=== PATIENT | female | born 1980 | race Caucasian/White ===

== ENCOUNTER 2022-08-11 16:30 | Emergency (ER) | payer OTHER, SELFPAY ==
--- NOTE | ~2022-08-11 | XR_ITS ---
EXAMINATION: XR chest 2V Exam Date/Time: 08/11/2022 18:30 CDT HISTORY: evaluate for possible rt side FB AFTER TATTOO Comparison: 08/23/2014. RESULT: Lines, tubes, and devices: None. Lungs and pleura: Clear. Cardiomediastinal silhouette: Stable. Other: No acute osseous or upper abdominal finding. IMPRESSION: No acute cardiopulmonary process. No radiopaque foreign body. Reviewed, dictated and finalized at location K.
[2022-08-11 16:35] VITALS: BP 131/81; PULSE 93; RESP 18; TEMP 36.1; O2SAT 100
--- NOTE | 2022-08-11 18:43 | PC.NURSE ---
EDP at bedside to assess pt.
--- NOTE | 2022-08-11 18:50 | ED.WOUNDLAC ---
HPI - Wound/Laceration General Chief Complaint: Wound/Laceration Stated Complaint: WOUND TO TATOO Time Seen by Provider: 08/11/22 18:22 History of Present Illness HPI narrative: 41-year-old female presents the emergency room for evaluation of right thoracic back pain. Patient states 8 months ago she had a tattoo placed to her thoracic back and was experiencing some pain several months after the tattoo was placed. Patient states that she went to an outside emergency room and was given antibiotic ointment to treat for possible infection. Patient states that she did not experience any resolution of her symptoms. Patient then states that she went back to the artist scientific, where he made an incision and began digging around in her back searching for a possible foreign body or tip of the tattoo gun. Patient states the artist scientific did not find foreign body. Patient describes the pain as a burning sensation to the small area in question. Patient has been using Tylenol and ibuprofen with no resolution of symptoms Related Data Allergies Allergy/AdvReac Type Severity Reaction Status Date / Time acetaminophen Allergy Mild ITCHING Verified 08/11/22 18:43 codeine Allergy Mild ITCHING Verified 08/11/22 18:43 Review of Systems Review of Systems: CONSTITUTIONAL: Denies fever, chills, or sweats. EYES: Denies visual changes, redness, or discharge. ENT: Denies rhinorrhea, congestion, sore throat, or otalgia. CARDIOVASCULAR: Denies chest pain, palpitations, or edema. RESPIRATORY: Denies cough or dyspnea. GASTROINTESTINAL: Denies abdominal pain, nausea, vomiting, or diarrhea. GENITOURINARY: Denies dysuria or hematuria. SKIN: Denies rash or itching. MUSCULOSKELETAL: Denies back pain, joint pain, or myalgia. NEUROLOGIC: Denies headache, numbness, dizziness, or weakness. PSYCHIATRIC: Denies anxiety or depression. Exam Narrative: GENERAL: Well-appearing, well-nourished, no physical limitations, and in no acute distress. HEAD: Normocephalic, atraumatic. EYES: Conjunctivae normal, PERRLA and EOMI. CHEST: Clear to auscultation. No respiratory distress. No wheezes rales or rhonchi. No tenderness. HEART: Regular rate and rhythm. No murmur heard. Normal peripheral pulses. BACK: No cervical/thoracic/lumbar tenderness, step-offs, bony abnormality; FROM EXTREMITIES: Normal range of motion. No edema. No clubbing or cyanosis SKIN: Small 1.5 cm scar to the mid right thoracic area, with no erythema no soft tissue swelling no purulent drainage. No palpable subcutaneous mass. NEURO: No focal deficits. Alert and oriented x3. MAEW. CN's II-XI intact bilaterally, normal gait PSYCH: Cooperative. Normal mood and affect. Course Vital Signs Vital signs: Vital Signs Temperature 36.1 C L 08/11/22 16:35 Pulse Rate 93 08/11/22 16:35 Respiratory Rate 18 08/11/22 16:35 Blood Pressure 131/81 08/11/22 16:35 Pulse Oximetry 100 08/11/22 16:35 Oxygen Delivery Room Air 08/11/22 16:35 Temperature 36.1 C L 08/11/22 16:35 Pulse Rate 93 08/11/22 16:35 Respiratory Rate 18 08/11/22 16:35 Blood Pressure 131/81 08/11/22 16:35 Pulse Oximetry 100 08/11/22 16:35 Oxygen Delivery Room Air 08/11/22 16:35 MDM - Wound/Laceration MDM Narrative Medical decision making narrative: Imaging was obtained to evaluate for a soft tissue mass. Chest x-ray and lateral views demonstrated no foreign body. Patient was describing the pain as a burning sensation, which could be nerve irritation in nature. Will trial the patient on gabapentin to see if this alleviates her symptoms. Also have patient follow-up with plastics for further evaluation. Discharge Plan Discharge Clinical Impression: Paresthesia Patient Disposition: Home, Self-Care Condition: Stable Instructions: Antibiotic Form Prescriptions: New gabapentin 300 mg capsule 300 mg PO BID Qty: 20 0RF Follow-up/Referrals: Fredy Jack MD [Physician] - UNKNOWN,DOCTOR [Pr
== END 2022-08-11 19:35 | disposition home or self-care (01) ==
PROVIDERS: Emergency Provider Nurse Practitioner Family
DX: R20.2 Paresthesia of skin (principal)
CPT/HCPCS: 71046; 99283

== ENCOUNTER 2022-12-04 15:29 | Outpatient (CLI) | payer OTHER, SELFPAY ==
[2022-12-04 15:49] LABS: Hematocrit 37.7 % (37.0-47.0); Hemoglobin 12.9 g/dL (12.0-15.0); Mean Corpuscular HGB Conc 34.2 g/dl (32-36); Mean Corpuscular Hemoglobin 33.7 pg (26-34); Mean Corpuscular Volume 98.4 fl (80-100); Mean Platelet Volume 9.2 fl (7.4-10.4); Platelet Count Result 277 k/mm3 (150-375); Red Blood Count 3.83 M/mm3 (4.2-5.4); Red Cell Distribution Width 15.5 % (11.5-14.5); White Blood Count 8.9 K/mm3 (4.5-10.0)
[2022-12-04 16:00] LABS: Alanine Aminotransferase 18 U/L (6-35); Albumin Level 4.2 g/dL (3.5-5.1); Alkaline Phosphatase 72 U/L (38-126); Anion Gap 5 mmol/L (8-16); Aspartate Amino Transferase 21 U/L (14-36); Bilirubin,Total 0.5 mg/dL (0.2-1.3); Blood Urea Nitrogen 10 mg/dL (7-17); Carbon Dioxide 28 mmol/L (22-30); Chloride 106 mmol/L (98-107); Cholesterol 207 mg/dL (0-200); Estimated Glomerular Filt Rate > 60; Glucose 90 mg/dL (65-110); HDL Direct 51 mg/dL; Potassium 3.9 mmol/L (3.4-5.0); Sodium 139 mmol/L (137-145); Triglycerides 63 mg/dL (<150)
[2022-12-04 16:09] LABS: Hemoglobin A1C 5.2 % (<5.7)
[2022-12-04 16:11] LABS: LDL Cholesterol Direct 115 mg/dL
== END 2022-12-04 15:30 | disposition home or self-care (01) ==
LOC: ANHLAB 15:30
PROVIDERS: PCP Internal Medicine; Visit Provider Internal Medicine
DX: Z00.00 Encounter for general adult medical examination without abnormal findings (principal); F41.9 Anxiety disorder, unspecified
CPT/HCPCS: 36415; 80053; 80061; 83036; 84443; 85027

== ENCOUNTER 2023-05-26 00:16 | Day surgery (SDC) | payer OTHER, SELFPAY ==
[2023-05-15 14:16] VITALS: BMI 29.3
[2023-05-26 08:41] VITALS: BP 120/79; PULSE 61; RESP 24; TEMP 36.1; O2SAT 100
[2023-05-26] MEDS: LACTATED RINGERS 1,000 ML 150 ML IV CONT (09:00)
--- NOTE | 2023-05-26 09:05 | WPDANESEPPF ---
Anes - Initial Pre Proc Eval Procedure: Operation Date: 05/26/23 09:30 Proposed Procedures p Esophagogastroduodenoscopy & Colonoscopy - Yoseph Perez MD Date/Time: 05/26/23 09:05 Surgeon: Yoseph Perez MD Pre Op Diagnosis: GERD,dysphagia,melena,Right lower quadrant pain Patient Data Age: 42 Gender: F Height: 1.57 m Weight: 78.7 kg Last Vital Signs Temp 97.0 F L 05/26/23 08:41 Pulse 61 05/26/23 08:41 Resp 24 H 05/26/23 08:41 BP 120/79 05/26/23 08:41 Pulse Ox 100 05/26/23 08:41 O2 Del Method Room Air 05/26/23 08:41 Allergies Allergy/AdvReac Type Severity Reaction Status Date / Time acetaminophen Allergy Mild ITCHING Verified 05/26/23 09:02 codeine Allergy Mild ITCHING Verified 05/26/23 09:02 Home Medications Medication Instructions Recorded Confirmed Type Proctofoam HC 1 %-1 % 1 applic RECTAL QID PRN 03/24/23 05/26/23 Rx (hydrocortisone-pramoxine) hemorrhoids #10 grams quetiapine 100 mg tablet 100 mg PO QHS #90 tabs 04/16/23 05/26/23 Rx hyoscyamine sulfate 0.125 mg 0.125 mg PO .every 6 hours 05/04/23 05/26/23 Rx tablet (Levsin) abdominal pain #120 tabs pantoprazole 40 mg tablet,delayed 40 mg PO QAM #30 tabs 05/06/23 05/26/23 Rx release prazosin 1 mg capsule (Minipress) 1 mg PO QHS 05/15/23 05/26/23 History albuterol sulfate 90 mcg/actuation 1 inh inhalation Q8H PRN shortness 05/22/23 05/26/23 Rx aerosol inhaler (Ventolin HFA) of breath or wheezing #6.7 grams lorazepam 1 mg tablet 1 mg PO TID PRN anxiety #60 tabs 05/22/23 05/26/23 Rx Patient hx anesthesia problems: none Family hx anesthesia problems: none Results Review: All pre-operative results and documents have been reviewed as part of the pre-operative evaluation. PMFSH Past Medical History Medical History Anxiety Asthma Bipolar 1 disorder Chronic bilateral lower abdominal pain Closed fracture of 4th metacarpal Colitis Decreased appetite Dilation of esophagus Dysphagia Early satiety GERD (gastroesophageal reflux disease) Hematochezia Hiatal hernia Low back pain Rectal pain Right fibular fracture Thyroid disease Tobacco use Surgical History Surgical History H/O: hysterectomy Family History Family History Mother Diabetes mellitus Heart disease Father Heart disease Social History Social History Smoking packs per day: 1 Smoking cigarettes per day: 20.0 Years smoked: 9 Smoking pack-years: 9.00 Smoking status: Current some day smoker Tobacco type: cigarettes Alcohol intake: never Substance use: current Substance use type: marijuana Last use: 05/09/23 Lack of Transportation: No Lack of Food: Never True Current Housing: I Have Housing Concerned About Future Housing: No Difficulty Paying Gas/Electric Bills: No Difficulty Paying for Meds: No Currently Unemployed: No Education: High School Diploma/GED Difficulty w/ Childcare or Family Care: No Living arrangements: with family Gender identity (if verbalized by the patient): Female Sexual Orientation (if Verbalized by the Patient): Bisexual Spiritual care concerns: No Anes - Eval Final PreProcedure Day of Procedure 05/26/23 09:05 Patient weight: obese Heart: regular rate and rhythm Lungs: clear to auscultation Airway: Mallampati scale class II Neurological: alert and oriented Last oral intake: >/= 8 hours ASA classification: III Emergent: no Anesthetic plan: proceed Anesthesia type and monitoring: general GIVS and standard monitoring Results Review: All pre-operative results and documents have been reviewed as part of the pre-operative evaluation. Informed Consent: The patient's anesthetic plan and its attendant risks and benefits were discussed with the patient/family/POA. Questions were
--- NOTE | 2023-05-26 09:08 | WPDHPUPDATE1 ---
History and Physical Update Update Date/Time: 05/26/23 09:08 History and Physical has been reviewed, including an updated exam of the patient. There are NO changes in the patient's condition. Risks, benefits, and alternatives have been discussed and questions answered. Patient agrees to proceed with procedure.
--- NOTE | 2023-05-26 09:30 | SUR.OPER ---
EGD: Start 09:18, End 09:22 Colon: Start 09:27 End 09:38
[2023-05-26 09:40] VITALS: BP 113/70; PULSE 66; RESP 24; O2SAT 100
[2023-05-26 09:50] VITALS: BP 112/85; PULSE 58; RESP 24; O2SAT 98
[2023-05-26 10:00] VITALS: BP 132/85; PULSE 54; RESP 24; O2SAT 100
== END 2023-05-26 10:13 | disposition home or self-care (01) ==
PROVIDERS: PCP Family Medicine; Visit Provider Internal Medicine Gastroenterology
PROC: 0DJ08ZZ Inspection of Upper Intestinal Tract, Via Natural or Artificial Opening Endoscopic (ICD-10-PCS; CPT 43235; principal; 2023-05-26 09:30)
DX: K21.00 Gastro-esophageal reflux disease with esophagitis, without bleeding (principal); K44.9 Diaphragmatic hernia without obstruction or gangrene; K29.70 Gastritis, unspecified, without bleeding; D12.3 Benign neoplasm of transverse colon; Z87.19 Personal history of other diseases of the digestive system; Z79.51 Long term (current) use of inhaled steroids; F31.9 Bipolar disorder, unspecified; F17.210 Nicotine dependence, cigarettes, uncomplicated; E66.9 Obesity, unspecified; Z68.31 Body mass index [BMI] 31.0-31.9, adult
CPT/HCPCS: 45385; 43239; 88305; J2704; J7120

== ENCOUNTER 2023-07-04 12:20 | Outpatient (CLI) | payer OTHER, SELFPAY ==
--- NOTE | ~2023-07-04 | MR_ITS ---
MRI of the lumbar spine Clinical History: Back pain Technique: Axial T2-weighted images, and sagittal T1-weighted, T2-weighted, and T2 fat-sat images wer e acquired. Findings: There is no fracture or subluxation of the lumbar spine. Vertebral bodies maintain normal h eight and alignment. There are reactive marrow signal changes about the L3-L4 disc space. No suspicio us bone marrow signal abnormality seen. Small intraosseous hemangioma noted at T11. At L1-L2 and L2-L3, there is no disc bulge or herniation. There is mild facet joint arthropathy at th ana luisa levels. No spinal canal stenosis or neural foraminal narrowing at these levels. At L3-L4, there is broad-based posterior disc protrusion. There is mild to moderate facet arthropathy . No central canal stenosis or neural foraminal narrowing. At L4-L5, there is mild diffuse disc bulge with tiny annular fissure. No central canal stenosis or ne ural foraminal narrowing. At L5-S1, there is no disc bulge or herniation. No spinal canal stenosis or neural foraminal narrowin g. Paravertebral soft tissues are unremarkable. Impression: Mild degenerative spondylosis, especially at L3-L4 and L4-L5, as detailed above. Reviewed, dictated and finalized at location . Impression: Mild degenerative spondylosis, especially at L3-L4 and L4-L5, as detailed above .
== END 2023-07-04 12:21 | disposition home or self-care (01) ==
PROVIDERS: PCP Family Medicine; Visit Provider Family Medicine
DX: R32 Unspecified urinary incontinence (principal); N32.81 Overactive bladder; M47.896 Other spondylosis, lumbar region
CPT/HCPCS: 72148

== ENCOUNTER 2023-09-10 04:45 | Emergency (ER) | payer OTHER, SELFPAY ==
[2023-09-10 04:46] VITALS: BP 133/99; PULSE 92; RESP 20; TEMP 36.2; O2SAT 98
--- NOTE | 2023-09-10 05:48 | ED.ANXIETY ---
HPI - Anxiety General Chief Complaint: Anxiety Stated Complaint: anxiety Time Seen by Provider: 09/10/23 05:01 History of Present Illness HPI narrative: Patient is a 42-year-old female with a history of PTSD, bipolar disorder, anxiety presenting with anxiety. Patient states that she has been out of her medications for the last month and her PCP is unable to get her in until December. States that her anxiety has been increasingly severe especially since one of her friends killed himself. States that she just feels overwhelmed with everything going on in her life. She denies suicidal or homicidal ideation. No hallucinations or paranoia. Denies further complaints. Related Data Allergies Allergy/AdvReac Type Severity Reaction Status Date / Time acetaminophen Allergy Mild ITCHING Verified 06/02/23 13:43 codeine Allergy Mild ITCHING Verified 06/02/23 13:43 Review of Systems Review of Systems: All systems reviewed & are unremarkable except as noted in HPI and below PMFSH Past Medical History Medical History Anxiety Asthma Bipolar 1 disorder Chronic bilateral lower abdominal pain Closed fracture of 4th metacarpal Colitis Decreased appetite Dilation of esophagus Dysphagia Early satiety GERD (gastroesophageal reflux disease) Hematochezia Hiatal hernia Low back pain Rectal pain Right fibular fracture Thyroid disease Tobacco use Surgical History Surgical History H/O: hysterectomy Family History Family History Mother Diabetes mellitus Heart disease Father Heart disease Social History Social History Smoking packs per day: 1 Smoking cigarettes per day: 20.0 Years smoked: 9 Smoking pack-years: 9.00 Smoking status: Current some day smoker Tobacco type: cigarettes Alcohol intake: never Substance use: current Substance use type: marijuana Last use: 05/09/23 Lack of Transportation: No Lack of Food: Never True Current Housing: I Have Housing Concerned About Future Housing: No Difficulty Paying Gas/Electric Bills: No Difficulty Paying for Meds: No Currently Unemployed: No Education: High School Diploma/GED Difficulty w/ Childcare or Family Care: No Living arrangements: with family Gender identity (if verbalized by the patient): Female Sexual Orientation (if Verbalized by the Patient): Bisexual Spiritual care concerns: No Exam Narrative: GENERAL: Anxious, intermittently tearful, pleasant and cooperative HEAD: Normocephalic, atraumatic. EYES: PERRLA and EOMI. ENT: Mucous membranes moist. NECK: Supple. CHEST: Clear to auscultation. No respiratory distress. HEART: Regular rate and rhythm ABDOMEN: Soft, nontender, nondistended EXTREMITIES: Normal range of motion. SKIN: Warm, dry, no rash. NEURO: No focal deficits. Alert and oriented x3. PSYCH: Tearful, anxious, cooperative, denies SI or HI Course Vital Signs Vital signs: Vital Signs Temperature 97.2 F L 09/10/23 04:46 Pulse Rate 92 09/10/23 04:46 Respiratory Rate 20 09/10/23 04:46 Blood Pressure 133/99 H 09/10/23 04:46 Pulse Oximetry 98 09/10/23 04:46 Oxygen Delivery Room Air 09/10/23 04:46 Temperature 97.2 F L 09/10/23 04:46 Pulse Rate 92 09/10/23 04:46 Respiratory Rate 20 09/10/23 04:46 Blood Pressure 133/99 H 09/10/23 04:46 Pulse Oximetry 98 09/10/23 04:46 Oxygen Delivery Room Air 09/10/23 04:46 MDM - Anxiety MDM Narrative Medical decision making narrative: 42-year-old female presenting with anxiety. Vitals are stable. Exam remarkable for the above. Patient states that she has been out of her medications which includes as needed Ativan. She also takes prazosin for PTSD. States that she has been trying to get in with her PCP but he is unable to get her in for several months.
[2023-09-10] MEDS: LORazepam (*CRX) 1 MG TABLET PO (05:55)
== END 2023-09-10 06:12 | disposition home or self-care (01) ==
PROVIDERS: Emergency Provider Emergency Medicine; PCP Family Medicine
DX: F41.9 Anxiety disorder, unspecified (principal); F43.10 Post-traumatic stress disorder, unspecified; T42.4X6A Underdosing of benzodiazepines, initial encounter; T44.6X6A Underdosing of alpha-adrenoreceptor antagonists, initial encounter; F31.9 Bipolar disorder, unspecified; J45.909 Unspecified asthma, uncomplicated; E07.9 Disorder of thyroid, unspecified; K21.9 Gastro-esophageal reflux disease without esophagitis; K44.9 Diaphragmatic hernia without obstruction or gangrene; R68.81 Early satiety
CPT/HCPCS: 99283; A9270

== ENCOUNTER 2024-05-13 15:04 | Emergency (ER) | payer OTHER, SELFPAY ==
[2024-05-13 15:10] VITALS: BP 132/81; PULSE 93; RESP 16; TEMP 36.6; O2SAT 100
--- NOTE | 2024-05-13 15:37 | ED.SKABFB ---
HPI - Skin/Abscess/Foreign Bdy General Chief complaint: Skin/Abscess/Foreign Body Stated complaint: inflammation on abd Time Seen by Provider: 05/13/24 15:37 Source: patient Mode of arrival: ambulatory Limitations: no limitations History of Present Illness HPI narrative: Brett is a 43-year-old patient presenting to the clinic today with complaints of inflammation to the skin folds of their abdomen. States that the rash is itching and burning and at times using. Feels as though they has some whelps areas in the skin fold. Patient has had tried nystatin cream, ketoconazole cream, clotrimazole cream, and clobetasol cream without relief Related Data Allergies Allergy/AdvReac Type Severity Reaction Status Date / Time acetaminophen Allergy Mild ITCHING Verified 04/11/24 13:15 codeine Allergy Mild ITCHING Verified 04/11/24 13:15 lithium AdvReac Intermediate mood Uncoded 04/11/24 13:37 Review of Systems Review of Systems: Pertinent positives per HPI. Patient denies any fever, chills, rash, headache, visual changes, dizziness, cough, runny nose, sore throat, shortness of breath, chest pain, palpitations, nausea, vomiting, diarrhea, constipation, abdominal pain, or any urinary issues. [facility] Past Medical History Medical History Anxiety Asthma Bipolar 1 disorder Chronic bilateral lower abdominal pain Closed fracture of 4th metacarpal Colitis Decreased appetite Dilation of esophagus Dysphagia Early satiety GERD (gastroesophageal reflux disease) Hematochezia Hiatal hernia Low back pain Rectal pain Right fibular fracture Thyroid disease Tobacco use Surgical History Surgical History H/O: hysterectomy Family History Family History Mother Diabetes mellitus Heart disease Father Heart disease Social History Social History Smoking packs per day: 1 Smoking cigarettes per day: 20.0 Years smoked: 9 Smoking pack-years: 9.00 Smoking status: Current some day smoker Tobacco type: cigarettes Alcohol intake: never Substance use: current Substance use type: marijuana Last use: 05/09/23 Lack of Transportation: No Lack of Food: Never True Current Housing: I Have Housing Concerned About Future Housing: No Difficulty Paying Gas/Electric Bills: No Difficulty Paying for Meds: No Currently Unemployed: No Education: High School Diploma/GED Difficulty w/ Childcare or Family Care: No Living arrangements: with family Gender identity (if verbalized by the patient): Female Sexual Orientation (if Verbalized by the Patient): Bisexual Spiritual care concerns: No Comments At the time of my signature, I reviewed and agree with the nursing past medical, surgical, social, and family history. There is no relevant family history pertinent to the patient complaint. Exam Narrative: General: Well-developed, well nourished, in no apparent distress Head: Normocephalic, atraumatic. Cardio: Regular rate and rhythm, s1 and s2 normal, no murmur appreciated. Resp: Clear to auscultation bilaterally, no rhonchi, rales, wheezing or rubs. Integumentary: [place], warm, and dry, redness, itching, mild erythema and the abdomen skin fold with satellite lesions. Course Course Emergency Course: Portions of this record may have been created with voice recognition software. Vital Signs Vital signs: Vital Signs Temperature 36.6 C 05/13/24 15:10 Pulse Rate 93 05/13/24 15:10 Respiratory Rate 16 05/13/24 15:10 Blood Pressure 132/81 05/13/24 15:10 Pulse Oximetry 100 05/13/24 15:10 Oxygen Delivery Room Air 05/13/24 15:10 Temperature 36.6 C 05/13/24 15:10 Pulse Rate 93 05/13/24 15:10 Respiratory Rate 16 05/13/24 15:10 Blood Pressure 132/81 05/13/24 15:10 Pulse Oximetry 100 05/13/24 15:10
== END 2024-05-13 15:59 | disposition home or self-care (01) ==
LOC: ANHED 15:49
PROVIDERS: Emergency Provider Nurse Practitioner Family; PCP Family Medicine
DX: L30.4 Erythema intertrigo (principal); J45.909 Unspecified asthma, uncomplicated; E07.9 Disorder of thyroid, unspecified; K21.9 Gastro-esophageal reflux disease without esophagitis; K44.9 Diaphragmatic hernia without obstruction or gangrene; R68.81 Early satiety; F41.9 Anxiety disorder, unspecified; F31.9 Bipolar disorder, unspecified; F17.210 Nicotine dependence, cigarettes, uncomplicated; Z90.710 Acquired absence of both cervix and uterus; Z79.899 Other long term (current) drug therapy
CPT/HCPCS: 99283

== ENCOUNTER 2024-07-28 13:26 | Outpatient (CLI) | payer OTHER, SELFPAY ==
[2024-07-28 18:40] LABS: Hematocrit 42.1 % (37.0-47.0); Hemoglobin 14.3 g/dL (12.0-15.0); Mean Corpuscular Hemoglobin 34.3 pg (26-34); Mean Platelet Volume 11.2 fl (7.4-10.4); Platelet Count Result 216 k/mm3 (150-375); Red Blood Count 4.17 M/mm3 (4.2-5.4); Red Cell Distribution Width 14.1 % (11.5-14.5); White Blood Count 7.3 K/mm3 (4.5-10.0)
[2024-07-28 20:40] LABS: Iron 58 ug/dL (37-170)
[2024-07-28 20:51] LABS: Percent Iron Saturation 21 % (20-50)
[2024-07-28 20:59] LABS: Free T4 Free Thyroxine 0.84 ng/mL (0.78-2.19)
[2024-07-28 23:15] LABS: Alanine Aminotransferase 19 U/L (6-35); Albumin Level 4.3 g/dL (3.5-5.1); Alkaline Phosphatase 64 U/L (38-126); Anion Gap 13 mmol/L (4-12); Aspartate Amino Transferase 30 U/L (14-36); Bilirubin,Total 0.2 mg/dL (0.2-1.3); Blood Urea Nitrogen 9 mg/dL (7-17); Calcium 9.6 mg/dL (8.4-10.2); Carbon Dioxide 23 mmol/L (22-30); Chloride 102 mmol/L (98-107); Cholesterol 193 mg/dL (0-200); Estimated Glomerular Filt Rate > 60; Glucose 125 mg/dL (65-110); HDL Direct 45 mg/dL; Potassium 3.8 mmol/L (3.4-5.0); Sodium 138 mmol/L (137-145); Triglycerides 87 mg/dL (<150)
[2024-07-28 23:16] LABS: LDL Cholesterol Direct 121 mg/dL
[2024-08-02 04:19] LABS: Thyroid Peroxidase Antibodies 2 IU/mL (<9)
== END 2024-07-28 13:27 | disposition home or self-care (01) ==
LOC: ANHBWCLAB 13:27
PROVIDERS: PCP Nurse Practitioner Adult Health; Visit Provider Nurse Practitioner Adult Health
DX: Z13.9 Encounter for screening, unspecified (principal); F32.A Depression, unspecified
CPT/HCPCS: 36415; 80053; 80061; 82607; 82728; 83540; 83550; 84439; 84443; 85027; 86376

== ENCOUNTER 2024-08-04 12:06 | Day surgery (SDC) | payer OTHER, SELFPAY ==
[2024-07-26 10:02] VITALS: BMI 30.6
[2024-07-26 11:01] VITALS: BMI 30.4
--- NOTE | 2024-08-04 12:47 | SUR.PREOP ---
MD Lincoln notified regarding jewelry preference to not remove earrings and necklace - MD Rojased and jewelry waiver completed by patient.
--- NOTE | 2024-08-04 13:00 | WPDANESEPPF ---
Anes - Initial Pre Proc Eval Procedure: Operation Date: 08/04/24 14:00 Proposed Procedures p Esophagogastroduodenoscopy - Ignacio Moss MD Date/Time: 08/04/24 13:00 Surgeon: Ignacio Moss MD Pre Op Diagnosis: Dysphagia, unspecified. Esophageal Obstruction. Patient Data Age: 43 Gender: F Height: 1.55 m Weight: 73 kg Allergies Allergy/AdvReac Type Severity Reaction Status Date / Time acetaminophen Allergy Mild ITCHING Verified 08/04/24 12:30 codeine Allergy Mild ITCHING Verified 08/04/24 12:30 lithium AdvReac Intermediate Other Verified 08/04/24 12:30 Home Medications Medication Instructions Recorded Confirmed Type albuterol sulfate 90 mcg/actuation 1 inh inhalation Q8H PRN shortness 07/20/24 07/28/24 Rx aerosol inhaler (Ventolin HFA) of breath or wheezing #6.7 grams lorazepam 1 mg tablet 1 mg PO TID PRN anxiety #90 tabs 07/20/24 07/28/24 Rx omeprazole 40 mg capsule,delayed 40 mg PO DAILY #90 caps 07/20/24 07/28/24 Rx release prazosin 2 mg capsule 2 mg PO QHS #90 caps 07/20/24 07/28/24 Rx prazosin 5 mg capsule 5 mg PO QHS #90 caps 07/20/24 07/28/24 Rx aripiprazole 5 mg tablet (Abilify) 5 mg PO DAILY #30 tabs 07/28/24 07/28/24 Rx escitalopram oxalate 20 mg tablet 20 mg PO DAILY #30 tabs 07/28/24 07/28/24 Rx (Lexapro) cyanocobalamin (vitamin B-12) 1,000 mcg sublingual DAILY #90 tabs 08/01/24 Rx 1,000 mcg sublingual tablet Patient hx anesthesia problems: post op nausea/vomiting Family hx anesthesia problems: none Results Review: All pre-operative results and documents have been reviewed as part of the pre-operative evaluation. [facility] Past Medical History Medical History Anxiety Asthma Bipolar 1 disorder Chronic bilateral lower abdominal pain Closed fracture of 4th metacarpal Colitis Decreased appetite Dilation of esophagus Dysphagia Early satiety GERD (gastroesophageal reflux disease) Hematochezia Hiatal hernia Low back pain Rectal pain Right fibular fracture Thyroid disease Tobacco use Surgical History Surgical History H/O: hysterectomy Family History Family History Mother Diabetes mellitus Heart disease Father Heart disease Social History Social History Smoking packs per day: 0.5 Smoking cigarettes per day: 10.0 Years smoked: 9 Smoking pack-years: 4.50 Smoking status: Current every day smoker Tobacco type: cigarettes Alcohol intake: never Substance use: current Substance use type: marijuana Other substance usage details: occasional Last use: 05/09/23 Lack of Transportation: No Lack of Food: Never True Current Housing: I Have Housing Concerned About Future Housing: No Difficulty Paying Gas/Electric Bills: No Difficulty Paying for Meds: No Currently Unemployed: No Education: High School Diploma/GED Difficulty w/ Childcare or Family Care: No Living arrangements: alone Gender identity (if verbalized by the patient): Female Sexual Orientation (if Verbalized by the Patient): Bisexual Spiritual care concerns: No Anes - Eval Final PreProcedure Day of Procedure 08/04/24 13:00 Patient weight: obese Heart: regular rate and rhythm Lungs: decreased breath sounds Airway: Mallampati scale class II Neurological: alert and oriented Last oral intake: >/= 8 hours ASA classification: III Emergent: no Anesthetic plan: proceed Anesthesia type and monitoring: general GIVS and standard monitoring Results Review: All pre-operative results and documents have been reviewed as part of the pre-operative evaluation. Informed Consent: The patient's anesthetic plan and its attendant risks and benefits were discussed with the patient/family/POA. Questions were solicited and answers provided to the satisfaction of the patient/family/POA.
[2024-08-04] MEDS: LACTATED RINGERS 1,000 ML 150 ML IV CONT (13:16)
[2024-08-04 13:20] VITALS: BP 112/83; PULSE 67; RESP 18; TEMP 36.9; O2SAT 99; BMI 30.4
--- NOTE | 2024-08-04 13:20 | SUR.PREOP ---
Pt states hysterectomy 17 years ago.
--- NOTE | 2024-08-04 13:31 | PM.HPGS ---
History of Present Illness History of Present Illness Consent: Risks, benefits, and alternatives have been discussed and questions answered. Patient agrees to proceed with procedure. Chief complaint: Dysphagia, unspecified. Esophageal Obstruction. Narrative: Brett Stover is a 43 year old female referred for EGD. Patient has a history of acid reflux. Previous endoscopy at [facility] as reveal esophageal erosion. Patient has been maintained on omeprazole 40mg p.o. daily. She currently complains of difficulty swallowing. She states that food will catch in the mid substernal portion of the chest. Additionally she complains of ongoing heartburn. Patient denies any obvious bleeding. Her weight is stable. Family history noncontributory. Review of Systems Review of Systems: All systems reviewed & are unremarkable except as noted in HPI and below PMFSH Past Medical History Medical History Anxiety Asthma Bipolar 1 disorder Chronic bilateral lower abdominal pain Closed fracture of 4th metacarpal Colitis Decreased appetite Dilation of esophagus Dysphagia Early satiety GERD (gastroesophageal reflux disease) Hematochezia Hiatal hernia Low back pain Rectal pain Right fibular fracture Thyroid disease Tobacco use Surgical History Surgical History H/O: hysterectomy Family History Family History Mother Diabetes mellitus Heart disease Father Heart disease Social History Social History Smoking packs per day: 0.5 Smoking cigarettes per day: 10.0 Years smoked: 9 Smoking pack-years: 4.50 Smoking status: Current every day smoker Tobacco type: cigarettes Alcohol intake: never Substance use: current Substance use type: marijuana Other substance usage details: occasional Last use: 05/09/23 Lack of Transportation: No Lack of Food: Never True Current Housing: I Have Housing Concerned About Future Housing: No Difficulty Paying Gas/Electric Bills: No Difficulty Paying for Meds: No Currently Unemployed: No Education: High School Diploma/GED Difficulty w/ Childcare or Family Care: No Living arrangements: alone Gender identity (if verbalized by the patient): Female Sexual Orientation (if Verbalized by the Patient): Bisexual Spiritual care concerns: No Meds Home Medications and Allergies Home Medications Medication Instructions Recorded Confirmed Type albuterol sulfate 90 mcg/actuation 1 inh inhalation Q8H PRN shortness 09/11/24 09/26/24 Rx aerosol inhaler (Ventolin HFA) of breath or wheezing #6.7 grams lorazepam 1 mg tablet 1 mg PO TID PRN anxiety #90 tabs 07/20/24 08/04/24 Rx omeprazole 40 mg capsule,delayed 40 mg PO DAILY #90 caps 07/20/24 08/04/24 Rx release prazosin 2 mg capsule 2 mg PO QHS #90 caps 07/20/24 08/04/24 Rx prazosin 5 mg capsule 5 mg PO QHS #90 caps 07/20/24 08/04/24 Rx aripiprazole 5 mg tablet (Abilify) 5 mg PO DAILY #30 tabs 07/28/24 08/04/24 Rx escitalopram oxalate 20 mg tablet 20 mg PO DAILY #30 tabs 07/28/24 08/04/24 Rx (Lexapro) cyanocobalamin (vitamin B-12) 1,000 mcg sublingual DAILY #90 tabs 08/01/24 08/04/24 Rx 1,000 mcg sublingual tablet Allergies Allergy/AdvReac Type Severity Reaction Status Date / Time acetaminophen Allergy Mild ITCHING Verified 08/04/24 13:18 codeine Allergy Mild ITCHING Verified 08/04/24 13:18 lithium AdvReac Intermediate Other Verified 08/04/24 13:18 Vital Signs Vital Signs - 24 hr 08/04/24 13:20 Temperature 98.4 F Pulse Rate 67 Respiratory Rate 18 Blood Pressure 112/83 Pulse Oximetry 99 Oxygen Delivery Room Air Exam Narrative: Physical exam reveals patient to be alert. Vital signs stable. HEENT exam is unremarkable. Patient is anicteric. Lungs are clear to auscultation and percussion without murmur o
[2024-08-04 15:00] VITALS: BP 104/54; PULSE 55; RESP 14; O2SAT 100
--- NOTE | 2024-08-04 15:05 | WPDANESPN ---
Anes - Prog Note Post-Op Date/Time: 08/04/24 15:05 Cardiovascular status: normal Respiratory status: normal Airway patency: baseline Mental status: baseline Post-Op hydration status: normal Vital Signs: Last Vital Signs Temp 36.9 C 08/04/24 13:20 Pulse 55 L 08/04/24 15:00 Resp 14 08/04/24 15:00 BP 104/54 L 08/04/24 15:00 Pulse Ox 100 08/04/24 15:00 O2 Del Method Room Air 08/04/24 15:00 Pain Score (VAS): 0 I/O: Intake & Output 08/03/24 08/04/24 08/04/24 23:59 07:59 15:59 Intake Total 600 Balance 600 Patient Feedback: Patient satisfied with anesthetic care.
[2024-08-04 15:10] VITALS: BP 119/92; PULSE 55; RESP 14; O2SAT 100
[2024-08-04 15:20] VITALS: BP 128/86; PULSE 56; RESP 18; O2SAT 100
== END 2024-08-04 15:23 | disposition home or self-care (01) ==
PROVIDERS: PCP Nurse Practitioner Adult Health; Visit Provider Internal Medicine Gastroenterology
PROC: 0DJ08ZZ Inspection of Upper Intestinal Tract, Via Natural or Artificial Opening Endoscopic (ICD-10-PCS; CPT 43235; principal; 2024-08-04 14:00)
DX: R13.19 Other dysphagia (principal); K21.00 Gastro-esophageal reflux disease with esophagitis, without bleeding
CPT/HCPCS: 43239

== ENCOUNTER 2024-08-09 10:48 | Outpatient (CLI) | payer OTHER, SELFPAY ==
[2024-08-09 19:58] LABS: Hemoglobin A1C 5.7 % (<5.7)
== END 2024-08-09 10:49 | disposition home or self-care (01) ==
PROVIDERS: PCP Nurse Practitioner Adult Health; Visit Provider Nurse Practitioner Adult Health
DX: R73.9 Hyperglycemia, unspecified (principal)
CPT/HCPCS: 36415; 83036

== ENCOUNTER 2024-08-21 20:42 | Emergency (ER) | payer OTHER, SELFPAY ==
[2024-08-21 20:45] VITALS: BP 119/67; PULSE 77; RESP 18; TEMP 36.4; O2SAT 99
--- NOTE | 2024-08-21 22:51 | PC.NURSE ---
Patient called for room assignment, not seen in waiting room. Patient marked as left without being seen, triaged.
== END 2024-08-21 22:51 | disposition left against medical advice (07) ==
LOC: ANHED 22:57
PROVIDERS: PCP Nurse Practitioner Adult Health
DX: S01.81XA Laceration without foreign body of other part of head, initial encounter (principal)
CPT/HCPCS: 99199

== ENCOUNTER 2024-12-07 14:26 | Emergency (ER) | payer OTHER, SELFPAY ==
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
[2024-12-07 14:39] VITALS: BP 149/110; PULSE 95; RESP 20; TEMP 36.6; O2SAT 99
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
--- NOTE | 2024-12-07 15:54 | PC.NURSE ---
pt urinated prior to coming to room.
--- NOTE | 2024-12-07 16:03 | PC.NURSE ---
pt reports she had a hysterectomy.
--- OUTSIDE RECORDS SUMMARY | 2024-12-07 16:52 | XMS_ITS | CONTINUITY OF CARE DOCUMENT ---
Author Name cheryl violetotilia Address Unknown Organization [facility] Address [address] [address] [address] [place] [address] Phone [phone] Care Team Providers Care Phlebotomy Coordinator Name Role Phone Jeremiah EUGENE, Amor Unavailable CATALINA MOON MD Unavailable [phone] CATALINA MOON MD Unavailable [phone] [employer] Payer name Policy type / Coverage type Crystal red democrat [id number] [employer] Medicaid [id number]
[2024-12-07 17:25] LABS: Basophils Absolute Auto 0.1 K/mm3 (0.0-0.1); Basophils Percent Auto 0.6 % (0.2-1.2); Eosinophils Absolute Auto 0.1 K/mm3 (0-0.3); Eosinophils Percent Auto 0.8 % (0-4.4); Hematocrit 39.6 % (37.0-47.0); Hemoglobin 13.5 g/dL (12.0-15.0); Immature Granulocyte Absolute 0.01 K/mm3 (0.00-0.031); Immature Granulocyte Percent A 0.1 % (0-0.5); Lymphocytes Absolute Auto 2.48 K/mm3 (0.9-3.2); Lymphocytes Percent Auto 27.4 % (18.3-44.2); Mean Corpuscular HGB Conc 34.1 g/dl (32-36); Mean Corpuscular Hemoglobin 33.9 pg (26-34); Mean Corpuscular Volume 99.5 fl (80-100); Mean Platelet Volume 10.1 fl (7.4-10.4); Monocytes Absolute Auto 0.6 K/mm3 (0.1-0.6); Monocytes Percent Auto 7.1 % (2.6-8.5); Neutrophils Absolute Auto 5.8 K/mm3 (1.3-6.7); Platelet Count Result 246 k/mm3 (150-375); Red Blood Count 3.98 M/mm3 (4.2-5.4); Red Cell Distribution Width 13.8 % (11.5-14.5)
[2024-12-07 17:39] LABS: Alanine Aminotransferase 13 U/L (6-35); Alkaline Phosphatase 61 U/L (38-126); Anion Gap 8 mmol/L (4-12); Aspartate Amino Transferase 19 U/L (14-36); Bilirubin,Total 0.5 mg/dL (0.2-1.3); Blood Urea Nitrogen 15 mg/dL (7-17); Calcium 9.2 mg/dL (8.4-10.2); Carbon Dioxide 24 mmol/L (22-30); Chloride 106 mmol/L (98-107); Estimated CRCL calculation 70 ml/min; Estimated Glomerular Filt Rate > 60; Glucose 88 mg/dL (65-110); Sodium 138 mmol/L (137-145)
[2024-12-07 18:03] LABS: Estimated CRCL calculation 59 ml/min; Estimated Glomerular Filt Rate 60
[2024-12-07 19:21] VITALS: BP 103/88; PULSE 89; RESP 18; O2SAT 100
== END 2024-12-07 20:06 | disposition home or self-care (01) ==
PROVIDERS: Emergency Provider Emergency Medicine; PCP Nurse Practitioner Adult Health
DX: S22.080A Wedge compression fracture of T11-T12 vertebra, initial encounter for closed fracture (principal); J45.909 Unspecified asthma, uncomplicated; E07.9 Disorder of thyroid, unspecified; K21.9 Gastro-esophageal reflux disease without esophagitis; K44.9 Diaphragmatic hernia without obstruction or gangrene; F17.210 Nicotine dependence, cigarettes, uncomplicated; Z90.710 Acquired absence of both cervix and uterus; V48.6XXA Car passenger injured in noncollision transport accident in traffic accident, initial encounter
CPT/HCPCS: 36415; 71045; 71260; 72129; 72132; 74177; 80053; 85025; 99284; Q9967